=== PATIENT | female | born 1970 | race Two or more races ===

== ENCOUNTER 2020-05-28 23:42 | Emergency (ER) | payer MEDICAID, OTHER ==
[~2020-05-28] VITALS: Ht 160 cm; Wt 63.5 kg
[2020-05-28 23:45] VITALS: BP 137/97
== END 2020-05-29 01:08 | disposition left against medical advice (07) ==
LOC: EDBD 23:42 → ER 23:45
DX: R11.2 Nausea with vomiting, unspecified (principal); Z53.21 Procedure and treatment not carried out due to patient leaving prior to being seen by health care provider